=== PATIENT | female | born 1995 | race Caucasian/White ===

== ENCOUNTER → 2021-01-04 10:18 | Outpatient (CLI) | payer MEDICAID, SELFPAY ==
[2021-01-04 11:49] LABS: hCG Titer Quant., Serum < 1 mIU/mL (1-3)
== END ==
PROVIDERS: Visit Provider Obstetrics & Gynecology
DX: O03.9 Complete or unspecified spontaneous abortion without complication (principal)
CPT/HCPCS: 36415; 84702; 86900; 86901

== ENCOUNTER 2021-09-05 13:52 | Outpatient (CLI) | payer BC, SELFPAY ==
[2021-09-05 14:40] LABS: Hematocrit 38.5 % (37-47); Hemoglobin 13.3 g/dL (12.0-15.0); Mean Corp Hgb Conc 34.5 g/dL (32-36); Mean Corpuscular Hgb 30.4 pg (27.0-32.0); Mean Corpuscular Volume 88.1 fL (81-99); Mean Platelet Vol. 9.4 fl (6.2-12.0); Platelet Count 316 K/mm3 (150-450); RBC Distribution Width CV 12.2 % (11.6-14.6); RBC Distribution Width SD 39.3 fl (35.1-43.9); Red Blood Count 4.37 M/mm3 (4.2-5.4); White Blood Count 5.6 K/mm3 (4.4-11.0)
[2021-09-05 15:16] LABS: Estradiol 40.9 pg/mL; Follicle Stimulating Hormone 9.7 mIU/mL; Luteinizing Hormone 7.6 mIU/mL; T4 Free Direct 1.03 ng/dL (0.76-1.46); Thyroid Stim Hormone (TSH) 2.93 uIU/mL (0.358-3.74)
[2021-09-12 15:32] LABS: HPV Reflexed? NOT INDICATED
== END 2021-09-05 23:59 | disposition home or self-care (01) ==
LOC: WOBLAB 13:54
PROVIDERS: Visit Provider Obstetrics & Gynecology
DX: N93.9 Abnormal uterine and vaginal bleeding, unspecified (principal); Z12.4 Encounter for screening for malignant neoplasm of cervix
CPT/HCPCS: 36415; 82670; 83001; 83002; 84439; 84443; 85027; 88175; G0145

== ENCOUNTER → 2021-10-24 | Outpatient (CLI) | payer BC, SELFPAY ==
[2021-10-24 17:11] LABS: Absolute Lymphocyte Count 2.03 X10^3/uL (0.83-4.51); Absolute Neutrophil Count 3.4 X10^3/uL (2.0-7.7); Basophil# 0.02 X10^3/uL; Basophil% 0.3 % (0-1); Eosinophil# 0.25 X10^3/uL; Eosinophils% 4.2 % (0-5); Hemoglobin 12.4 g/dL (12.0-15.0); Lymphocyte # 2.03 X10^3/ul (0.83-4.51); Lymphocyte % 33.8 % (19-41); Mean Corp Hgb Conc 33.5 g/dL (32-36); Mean Corpuscular Hgb 30.4 pg (27.0-32.0); Mean Corpuscular Volume 90.7 fL (81-99); Mean Platelet Vol. 9.2 fl (6.2-12.0); Monocyte# 0.34 X10^3/uL; Monocyte% 5.7 % (0-10); NRBC Flagged by Analyzer 0 % (0-5); Neutrophil # 3.35 X10^3/uL (2.7-7.7); Neutrophil % 55.7 % (47-70); Platelet Count 222 K/mm3 (150-450); RBC Distribution Width CV 12.4 % (11.6-14.6); Red Blood Count 4.08 M/mm3 (4.2-5.4)
[2021-10-24 21:11] LABS: HIV - WCH Non-Reactive (Nonreactive); Hepatitis B Surface Antigen Non-Reactive (Nonreactive); Hepatitis C Antibody Non-Reactive (Nonreactive); Rubella IgG Reactive (Nonreactive); Syphilis Antibodies Non-reactive
[2021-10-26 21:07] LABS: Chlamydia By Nucleic Acid AMP Negative (Negative)
[2021-10-26 21:48] LABS: Gonococcus By Nucleic Acid AMP Negative (Negative)
== END | disposition home or self-care (01) ==
LOC: WOBLAB 16:53
PROVIDERS: Visit Provider Obstetrics & Gynecology
DX: Z34.81 Encounter for supervision of other normal pregnancy, first trimester (principal); Z11.3 Encounter for screening for infections with a predominantly sexual mode of transmission
CPT/HCPCS: 36415; 85025; 86703; 86762; 86780; 86803; 87077; 87086; 87088; 87340; 87491; 87591

== ENCOUNTER → 2022-03-16 | Outpatient (CLI) | payer BC, SELFPAY ==
[2022-03-16 11:00] LABS: Absolute Lymphocyte Count 0.69 X10^3/uL (0.83-4.51); Absolute Neutrophil Count 5.8 X10^3/uL (2.0-7.7); Basophil# 0.01 X10^3/uL; Basophil% 0.1 % (0-1); Eosinophil# 0.15 X10^3/uL; Eosinophils% 2.1 % (0-5); Hematocrit 32.7 % (37-47); Hemoglobin 11.1 g/dL (12.0-15.0); Lymphocyte # 0.69 X10^3/ul (0.83-4.51); Lymphocyte % 9.7 % (19-41); Mean Corp Hgb Conc 33.9 g/dL (32-36); Mean Corpuscular Hgb 31.9 pg (27.0-32.0); Mean Platelet Vol. 9.4 fl (6.2-12.0); Monocyte# 0.44 X10^3/uL; Monocyte% 6.2 % (0-10); NRBC Flagged by Analyzer 0 % (0-5); Neutrophil # 5.79 X10^3/uL (2.7-7.7); Neutrophil % 81.1 % (47-70); Platelet Count 233 K/mm3 (150-450); RBC Distribution Width CV 12.9 % (11.6-14.6); RBC Distribution Width SD 44.5 fl (35.1-43.9); Red Blood Count 3.48 M/mm3 (4.2-5.4); White Blood Count 7.1 K/mm3 (4.4-11.0)
[2022-03-16 11:07] LABS: Glucose Challenge Gest 1H 50g 165 mg/dL (70-140)
== END | disposition home or self-care (01) ==
LOC: WOBLAB 09:26
PROVIDERS: Visit Provider Obstetrics & Gynecology
DX: Z34.82 Encounter for supervision of other normal pregnancy, second trimester (principal)
CPT/HCPCS: 36415; 82950; 85025

== ENCOUNTER → 2022-03-23 | Outpatient (CLI) | payer BC, SELFPAY ==
[2022-03-23 09:35] LABS: Glucose GTT-Gestation. Fasting 85 mg/dL (<105)
[2022-03-23 10:38] LABS: Glucose GTT-Gestational 1 Hr 133 mg/dL (<190)
[2022-03-23 12:33] LABS: Glucose GTT-Gestational 2 Hr 165 mg/dL (<165)
[2022-03-23 13:22] LABS: Glucose GTT-Gestational 3 Hr 125 L (<145)
== END | disposition home or self-care (01) ==
LOC: WOBLAB 08:52
PROVIDERS: Visit Provider Obstetrics & Gynecology
DX: O24.912 Unspecified diabetes mellitus in pregnancy, second trimester (principal)
CPT/HCPCS: 36415; 82951; 82952

== ENCOUNTER → 2022-05-25 | Outpatient (CLI) | payer BC, SELFPAY | END | disposition home or self-care (01) | LOC: LABSPEC 11:36 | PROVIDERS: Visit Provider Obstetrics & Gynecology | DX: Z36.85 Encounter for antenatal screening for Streptococcus B (principal) | CPT/HCPCS: 87081 ==

== ENCOUNTER 2022-06-17 07:45 | Inpatient (IN) | payer BC, SELFPAY ==
[2022-06-17] VITALS (54 sets, daily range): BP systolic 91–137; BP diastolic 50–85; PULSE 58–112; RESP 18; TEMP 36.5–37.3; O2SAT 84–100; BMI 33.7
--- NOTE | 2022-06-17 07:35 | PCM.HP.BLA ---
History and Physical Date of Admission: 06/17/22 HPI: 27-year-old G3, P1 at 39/6 weeks, MAHAD 06/18/2022 by LMP consistent with first trimester ultrasound, admitted for labor. Reports contractions. Denies leaking of fluid, vaginal bleeding. Reports movement. Denies headache or vision changes, chest pain or shortness of breath, nausea or vomiting, diarrhea or constipation, fevers or chills. 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 section 2. [place] tooth extraction Medical history: Denies Allergies: No known drug allergies Social history: Denies tobacco, alcohol, drug use Medications: Aspirin 81 mg daily, vitamin Family history: Denies history of blood clots or bleeding disorders Review of system: Negative otherwise stated above Physical exam: Blood pressure 121/81, pulse 73, pulse ox 97% on room air General: No acute distress, uncomfortable with contractions HEENT: Normocephalic/atraumatic, PERRLA Cardiorespiratory: No increased effort Abdomen: Soft, nontender, gravid Extremities: Minimal edema Musculoskeletal: Strength 5-5 throughout extremities Neurologic: Cranial nerves II through XII grossly intact, no focal deficits Cervical exam: 2 cm per RN FHR: 135/mod wiliam/+accel/intermittent decels Filley: q5 Assessment/plan: 27-year-old G3, P1 at 39/6 weeks, MAHAD 06/18/2022 by LMP consistent with first trimester ultrasound, admitted for labor. complicated by: Prior section. ?Discussed trial of labor after section. Discussed risks and benefits. Lowest risk outcome would be successful vaginal after section, followed by repeat section, followed by section after failed trial of labor. Discussed less than 1% risk of uterine rupture. Discussed potential risks with uterine rupture including, but not limited to: Risk of , neurologic compromise, maternal hemorrhage, section, hysterectomy. Additionally discussed risks of section: Risk of bleeding to the point transfusion, infection, injury to surrounding tissue including bowel or bladder potentially requiring Morales catheter use for a prolonged period of time, VTE, ICU admission. Discussed that there had been variable decelerations on heart tracing, therefore she will need to stay to deliver. Discussed potential need for Pitocin. At this time patient and her are deciding between trial of labor versus repeat section. All questions answered. Discussed current plan with bedside RN. GBS negative on 05/25
[2022-06-17] MEDS: Lactated Ringers 1,000 ML 50 ML IV (08:52)
[2022-06-17] MEDS: LACTATED RINGERS 500 ML 999 ML IV (08:52)
[2022-06-17 09:01] LABS: Absolute Lymphocyte Count 1.48 X10^3/uL (0.83-4.51); Absolute Neutrophil Count 6.8 X10^3/uL (2.0-7.7); Basophil# 0.03 X10^3/uL; Basophil% 0.3 % (0-1); Eosinophil# 0.11 X10^3/uL; Eosinophils% 1.2 % (0-5); Hematocrit 37.5 % (37-47); Hemoglobin 12.9 g/dL (12.0-15.0); Lymphocyte # 1.48 X10^3/ul (0.83-4.51); Lymphocyte % 16.7 % (19-41); Mean Corp Hgb Conc 34.4 g/dL (32-36); Mean Corpuscular Hgb 31.3 pg (27.0-32.0); Mean Platelet Vol. 10.2 fl (6.2-12.0); Monocyte# 0.34 X10^3/uL; Monocyte% 3.8 % (0-10); NRBC Flagged by Analyzer 0 % (0-5); Neutrophil # 6.83 X10^3/uL (2.7-7.7); Neutrophil % 77.2 % (47-70); Platelet Count 231 K/mm3 (150-450); RBC Distribution Width CV 13.2 % (11.6-14.6); RBC Distribution Width SD 43.8 fl (35.1-43.9); Red Blood Count 4.12 M/mm3 (4.2-5.4); White Blood Count 8.9 K/mm3 (4.4-11.0)
[2022-06-17] MEDS: fentaNYL-bupivacaine (epidural) 100 ML BAG EPIDURAL ×2 (09:36→14:43)
[2022-06-17] MEDS: Ondansetron 4 MG/2 ML Vial IV (10:22)
[2022-06-17] MEDS: 0.9% Saline Lock 10 ML Syringe IV ×2 (10:23→19:31)
[2022-06-17] MEDS: Lactated Ringers 1,000 ML 200 ML IV (11:49)
[2022-06-17] MEDS: Oxytocin 15 Units/NS 250ml 15 UNITS/250 ML IV.SOLN 2 UNITS IV (14:24)
--- NOTE | 2022-06-17 15:49 | EX.PCM.OBRPT ---
Vaginal Delivery Operative Information Date of Procedure: 06/17/22 Pre-Operative Diagnosis: Mccord intrauterine , trial of labor after section Post-Operative Diagnosis: Mccord intrauterine , vaginal after section, terminal meconium Type of Anesthesia: Epidural Estimated Blood Loss: 300 cc Findings Description of Procedure: Spontaneous vaginal delivery of viable male. Nuchal cord x1, loose, delivered through. Terminal meconium. Baby to mom, cord clamped and cut. Second-degree laceration repaired in usual fashion, hemostatic. Spontaneous delivery of placenta. Rectal exam within normal limits. Successful vaginal delivery after section Will leave Morales catheter in place due to labial edema after approximately 4 hours of pushing. Infant A Gender: Male (1 minute): 8 (5 minute): 9 Complication Complications: None
[2022-06-17] MEDS: Acetaminophen 500 MG Tablet 1000 MG PO (16:19)
[2022-06-17] MEDS: Oxytocin 15 Units/NS 250ml 15 UNITS/250 ML IV.SOLN 83 UNITS IV (16:33)
[2022-06-17] MEDS: Ibuprofen 600 MG Tablet PO (19:23)
[2022-06-18] MEDS: Acetaminophen 500 MG Tablet PO ×4 (00:04→22:32)
[2022-06-18 00:08] VITALS: BP 120/61; PULSE 71; RESP 16; TEMP 36.6; O2SAT 96
[2022-06-18 04:52] VITALS: BP 122/65; PULSE 77; RESP 16; TEMP 37; O2SAT 98
[2022-06-18] MEDS: Ibuprofen 600 MG Tablet PO ×3 (04:54→17:58)
--- NOTE | 2022-06-18 07:10 | PCM.PN.OB ---
Subjective Subjective No overnight complaints Objective Data Objective Data Vital Signs: Vital Signs Temp Pulse Resp BP Pulse Ox O2 Del Method 98.6 F 77 16 122/65 H 98 Room Air 06/18/22 04:52 06/18/22 04:52 06/18/22 04:52 06/18/22 04:52 06/18/22 04:52 06/18/22 04:52 Oxygen Delivery Method Room Air Weight: 203 lb 2 oz Body Mass Index (BMI) 33.7 Intake & Output: Intake and Output for Last 24 Hours 06/16/22 06/17/22 06/18/22 23:59 23:59 23:59 Intake Total 2716.67 / 2716.67 Output Total 900 / 900 650 / 650 Balance 1816.67 / 1816.67 -650 / -650 Lab / Micro Data Result Diagrams: 06/17/22 08:50 Labs: Laboratory Results - last 24 hr 06/17/22 08:50: WBC 8.9, RBC 4.12 L, Hgb 12.9, Hct 37.5, MCV 91.0, MCH 31.3, MCHC 34.4, RDW Std Deviation 43.8, RDW Coeff of Bubba 13.2, Plt Count 231, MPV 10.2, Immature Gran % (Auto) 0.800, Neut % (Auto) 77.2 H, Lymph % (Auto) 16.7 L, [place] % (Auto) 3.8, Eos % (Auto) 1.2, Baso % (Auto) 0.3, Absolute Neuts (auto) 6.8, Absolute Lymphs (auto) 1.48, Nucleated RBC % 0 06/17/22 08:50: Blood Type A POSITIVE, Antibody Screen NEGATIVE Physical Exam Const alert, oriented x3, no apparent distress, average body habitus, healthy appearing and well nourished HEENT normocephalic and moist oral mucous membranes Eyes PERRL Neck full ROM Resp normal respiratory effort, no retractions and no use of accessory muscles GI GI Narrative: Soft, nontender, uterus firm and below umbilicus Extremity normal to inspection, full ROM and no clubbing, cyanosis or edema Neuro moves all extremities and no focal motor deficits Psych mental status grossly normal, affect normal, speech normal and activity/motor behavior normal Assessment & Plan (1) Vaginal delivery: PLAN: day 1 status post . Breast-feeding. Pain well controlled. Likely home tomorrow
[2022-06-18 08:45] VITALS: BP 97/57; RESP 16; TEMP 36.8; O2SAT 96
[2022-06-18 11:58] VITALS: BP 118/69; PULSE 71; RESP 16; TEMP 36.6
[2022-06-18 16:00] VITALS: BP 100/55; PULSE 71; RESP 14; TEMP 36.9
[2022-06-18 20:52] VITALS: BP 109/61; PULSE 72; RESP 18; TEMP 36.6
[2022-06-19] MEDS: Ibuprofen 600 MG Tablet PO (00:14)
[2022-06-19] MEDS: oxyCODONE 5 MG Tablet PO ×4 (00:59→15:16)
[2022-06-19 01:41] VITALS: BP 126/75; PULSE 79; RESP 18; TEMP 36.4
--- NOTE | 2022-06-19 01:53 | PN.OBGYN_ITS ---
Subjective Subjective Patient reporting right-sided pain that started this evening around 10 PM. Most improved using Motrin. Worsened when being moved to lie flat. States that pain is sharp and crampy. Does have some mild similar discomfort on the left side. Denies nausea or vomiting. Reports some flatus. States that last bowel m ovement was Saturday or Saturday. Denied constipation issues recently. Reports minimal lochia. Objective Data Objective Data Vital Signs: Vital Signs Temp Pulse Resp BP Pulse Ox O2 Del Method 97.5 F L 79 18 126/75 H 96 Room Air 06/19/22 01:41 06/19/22 01:41 06/19/22 01:41 06/19/22 01:41 06/18/22 08:45 06/19/22 01:41 Oxygen Delivery Method Room Air Weight: 92.136 kg Body Mass Index (BMI) 33.7 Intake & Output: Intake and Output for Last 24 Hours 06/17/22 06/18/22 06/19/22 23:59 23:59 23:59 Intake Total 2716.67 / 2716.67 Output Total 900 / 900 650 / 650 Balance 1816.67 / 1816.67 -650 / -650 Lab / Micro Data Attestation: I reviewed the patient's lab results. Result Diagrams: 06/17/22 08:50 Physical Exam Const alert HEENT normocephalic Resp normal respiratory effort Cardio regular rate GI soft to palpation, non-distended and no masses GI Narrative: Mildly tender to palpation. No rebound or guarding. Uterus firm and 2 cm below umbilicus. Extremity normal to inspection Neuro moves all extremities Assessment & Plan (1) Vaginal delivery: PLAN: day 2 status post vaginal delivery after section. ?Now with abdominal pain. Greatest improvement noted after ibuprofen. Not improving after oxycodone. Bedside ultrasound was completed noting uterus with thin endometrial stripe. Bladder slightly filled. Lochia is minimal. Differential diagnosis: Musculoskeletal strain due to labor and delivery versus appendicitis. Patient is currently afebrile, vital signs are stable. She is not having any nausea or vomiting. She does have some tenderness on the left side that is similar but less intense. Discussed trying one-time dose of Flexer il versus CT at this time. Patient elects to trial Flexeril. If pain is not improved we will do CT abdomen pelvis. ?Breast-feeding (2) Abdominal pain:
[2022-06-19 02:18] LABS: Absolute Lymphocyte Count 0.94 X10^3/uL (0.83-4.51); Absolute Neutrophil Count 11.5 X10^3/uL (2.0-7.7); Basophil# 0.02 X10^3/uL; Basophil% 0.1 % (0-1); Eosinophil# 0.19 X10^3/uL; Eosinophils% 1.4 % (0-5); Hematocrit 34.2 % (37-47); Hemoglobin 11.4 g/dL (12.0-15.0); Lymphocyte # 0.94 X10^3/ul (0.83-4.51); Mean Corp Hgb Conc 33.3 g/dL (32-36); Mean Corpuscular Hgb 31.4 pg (27.0-32.0); Mean Corpuscular Volume 94.2 fL (81-99); Mean Platelet Vol. 9.9 fl (6.2-12.0); Monocyte# 0.68 X10^3/uL; Monocyte% 5.1 % (0-10); NRBC Flagged by Analyzer 0 % (0-5); Neutrophil % 85.6 % (47-70); Platelet Count 198 K/mm3 (150-450); RBC Distribution Width CV 13.8 % (11.6-14.6); RBC Distribution Width SD 47.7 fl (35.1-43.9); Red Blood Count 3.63 M/mm3 (4.2-5.4); White Blood Count 13.4 K/mm3 (4.4-11.0)
[2022-06-19] MEDS: Polyethylene Glycol 3350 17 GM PACKET PO ×3 (02:35→21:50)
[2022-06-19] MEDS: cycloBENZAPRine HCl 10 MG Tablet PO (02:35)
[2022-06-19 02:42] LABS: Anion Gap 7 (5-15); BUN 7 mg/dL (7-18); BUN/Creat Ratio 13.9 RATIO (10-20); Calcium,Total 8.5 mg/dL (8.5-10.1); Chloride 114 mmol/L (98-107); EST Glomerular Filtration Rate 154 mL/min (>60); Est Glom Filt Rate - Afr Amer 186 mL/min (>60); Estimated Creatinine Clearance 149.39 ml/min; Glucose 129 mg/dL (74-106); Potassium 3.6 mmol/L (3.5-5.1); Sodium Level 143 mmol/L (136-145)
[2022-06-19] MEDS: Acetaminophen 500 MG Tablet 1000 MG PO ×2 (04:41→12:51)
--- NOTE | 2022-06-19 05:40 | CT_ITS ---
INDICATION: day 2 with right-sided abdominal pain, concern for appendicitis. EXAMINATION: CT Abdomen And Pelvis W/ Contrast Injection TECHNIQUE: Helically acquired images were obtained of the abdomen and pelvis following IV contrast. 2-D reconstructions reviewed. A radiation dose optimization technique was used for this scan. IV Contrast dosage and agent: 100 mL Isovue-370 Oral contrast: None. COMPARISON: None. FINDINGS: LOWER CHEST: Mild bibasilar atelectatic changes. Heart size within normal limits. LIVER: Homogeneous. No concerning lesion. GALLBLADDER AND BILIARY TREE: No calcified gallstones identified. No gallbladder wall edema demonstrated. No significant biliary ductal dilation. PANCREAS: No discrete mass or peripancreatic edema. SPLEEN: Normal size without focal cystic or solid mass. ADRENAL GLANDS: Unremarkable. KIDNEYS AND URETERS: Normal renal size and position. No hydronephrosis. No concerning lesion. PERITONEUM: Small amount of free pelvic fluid. No free air. BOWEL: Normal appendix within mid abdomen just right of midline and above enlarged uterus. Prominent colonic fecal load. No bowel obstruction or significant bowel thickening. LYMPH NODES: No enlarged mesenteric or retroperitoneal lymph nodes. VESSELS: No acute findings. No abdominal aortic aneurysm. URINARY BLADDER: Small amount of gas within bladder lumen, likely secondary to recent instrumentation/catheterization. REPRODUCTIVE ORGANS: Enlarged uterus. Low-attenuation fluid collection along right anterior lower uterine segment measures approximately 4.5 x 3 cm. ABDOMINAL WALL: Mild soft tissue swelling lower abdominal wall. BONES: Intact with no suspicious osseous lesion. CT/Abdomen/Pelvis W IV Cont ONLY IMPRESSION: 1. Fluid collection along lower uterine segment likely small hematoma but correlate clinically for signs of infection and developing abscess. 2. Enlarged uterus with small amount of free pelvic fluid. 3. Probable constipation. Electronically Signed: Tl London MD at 6:57 EST ,
[2022-06-19] MEDS: Ketorolac 15 MG/ML Vial IV ×3 (05:55→18:03)
[2022-06-19 08:15] VITALS: BP 108/48; PULSE 77; RESP 16; TEMP 36.2; O2SAT 96
[2022-06-19] MEDS: Bisacodyl 10 MG Suppository RC (10:54)
[2022-06-19 11:21] VITALS: BP 123/74; PULSE 83; RESP 14; TEMP 37.2; O2SAT 98
--- NOTE | 2022-06-19 11:47 | NURSING ---
0949 dr cobb into examine pt d/t a increase in her pain level
[2022-06-19] MEDS: Senna/Docusate Sodium 1 Tablet PO (13:01)
[2022-06-19 13:17] LABS: Absolute Lymphocyte Count 0.99 X10^3/uL (0.83-4.51); Absolute Neutrophil Count 13.5 X10^3/uL (2.0-7.7); Basophil# 0.03 X10^3/uL; Basophil% 0.2 % (0-1); Eosinophil# 0.24 X10^3/uL; Eosinophils% 1.5 % (0-5); Hematocrit 35.7 % (37-47); Hemoglobin 11.9 g/dL (12.0-15.0); Lymphocyte # 0.99 X10^3/ul (0.83-4.51); Lymphocyte % 6.3 % (19-41); Mean Corp Hgb Conc 33.3 g/dL (32-36); Mean Corpuscular Hgb 31.5 pg (27.0-32.0); Mean Corpuscular Volume 94.4 fL (81-99); Mean Platelet Vol. 9.6 fl (6.2-12.0); Monocyte# 0.84 X10^3/uL; Monocyte% 5.4 % (0-10); NRBC Flagged by Analyzer 0 % (0-5); Neutrophil # 13.52 X10^3/uL (2.7-7.7); Neutrophil % 86.1 % (47-70); Platelet Count 202 K/mm3 (150-450); RBC Distribution Width SD 48.2 fl (35.1-43.9); Red Blood Count 3.78 M/mm3 (4.2-5.4); White Blood Count 15.7 K/mm3 (4.4-11.0)
[2022-06-19 16:36] VITALS: BP 107/63; PULSE 75; RESP 14; TEMP 37.3; O2SAT 96
[2022-06-19] MEDS: 0.9% Saline Lock 10 ML Syringe IV ×2 (18:03→22:20)
[2022-06-19 20:33] VITALS: BP 117/79; PULSE 92; RESP 15; TEMP 37.4; O2SAT 97
[2022-06-20] MEDS: 0.9% Saline Lock 10 ML Syringe IV
[2022-06-20] MEDS: Ketorolac 15 MG/ML Vial IV
[2022-06-20 02:50] VITALS: BP 115/71; PULSE 75; RESP 15; TEMP 36.3; O2SAT 97
[2022-06-20] MEDS: Acetaminophen 500 MG Tablet 1000 MG PO ×2 (02:50→10:42)
[2022-06-20 04:56] LABS: Absolute Lymphocyte Count 1.83 X10^3/uL (0.83-4.51); Absolute Neutrophil Count 11.2 X10^3/uL (2.0-7.7); Basophil# 0.03 X10^3/uL; Basophil% 0.2 % (0-1); Eosinophil# 0.42 X10^3/uL; Eosinophils% 2.9 % (0-5); Hematocrit 35.3 % (37-47); Hemoglobin 11.7 g/dL (12.0-15.0); Lymphocyte # 1.83 X10^3/ul (0.83-4.51); Lymphocyte % 12.7 % (19-41); Mean Corp Hgb Conc 33.1 g/dL (32-36); Mean Corpuscular Volume 93.4 fL (81-99); Mean Platelet Vol. 9.6 fl (6.2-12.0); Monocyte# 0.78 X10^3/uL; Monocyte% 5.4 % (0-10); NRBC Flagged by Analyzer 0 % (0-5); Neutrophil # 11.24 X10^3/uL (2.7-7.7); Platelet Count 227 K/mm3 (150-450); RBC Distribution Width CV 13.8 % (11.6-14.6); RBC Distribution Width SD 47.2 fl (35.1-43.9); Red Blood Count 3.78 M/mm3 (4.2-5.4); White Blood Count 14.4 K/mm3 (4.4-11.0)
--- NOTE | 2022-06-20 05:27 | NURSING ---
Patient reports to RN this shift that toradol and tylenol have helped her pain, and that the pain she is having is not the same sharp pain as last night. Patient wishes to do motrin instead of 0600 toradol dose. Patient also reports have two small bowel movements yesterday during the day and has felt a little better since then.
[2022-06-20] MEDS: Ibuprofen 600 MG Tablet PO (06:26)
--- NOTE | 2022-06-20 06:38 | PN.OBGYN_ITS ---
Subjective Subjective Patient overall with no overnight complaints. Patient feels pain is much improved and well controlled. Ambulating, now with regular bowel movements. Voiding spontaneously and tolerating regular diet. Objective Data Objective Data Vital Signs: Vital Signs Temp Pulse Resp BP Pulse Ox O2 Del Method 97.3 F L 75 15 115/71 97 Room Air 06/20/22 02:50 06/20/22 02:50 06/20/22 02:50 06/20/22 02:50 06/20/22 02:50 06/20/22 02:50 Oxygen Delivery Method Room Air Weight: 203 lb 2 oz Body Mass Index (BMI) 33.7 Intake & Output: Intake and Output for Last 24 Hours 06/18/22 06/19/22 06/20/22 23:59 23:59 23:59 Intake Total 200 / 200 Output Total 650 / 650 Balance -650 / -650 200 / 200 Lab / Micro Data Result Diagrams: 06/20/22 04:43 06/19/22 02:10 Labs: Laboratory Results - last 24 hr 06/19/22 13:00: WBC 15.7 H, RBC 3.78 L, Hgb 11.9 L, Hct 35.7 L, MCV 94.4, MCH 31.5, MCHC 33.3, RDW Std Deviation 48.2 H, RDW Coeff of Bubba 14.0, Plt Count 202, MPV 9.6, Immature Gran % (Auto) 0.500, Neut % (Auto) 86.1 H, Lymph % (Auto) 6.3 L, [place] % (Auto) 5.4, Eos % (Auto) 1.5, Baso % (Auto) 0.2, Absolute Neuts (auto) 13.5 H, Absolute Lymphs (auto) 0.99, Nucleated RBC % 0 06/20/22 04:43: WBC 14.4 H, RBC 3.78 L, Hgb 11.7 L, Hct 35.3 L, MCV 93.4, MCH 31.0, MCHC 33.1, RDW Std Deviation 47.2 H, RDW Coeff of Bubba 13.8, Plt Count 227, MPV 9.6, Immature Gran % (Auto) 0.800, Neut % (Auto) 78.0 H, Lymph % (Auto) 12.7 L, [place] % (Auto) 5.4, Eos % (Auto) 2.9, Baso % (Auto) 0.2, Absolute Neuts (auto) 11.2 H, Absolute Lymphs (auto) 1.83, Nucleated RBC % 0 Radiography Diagnostic Testing: Radiology Impression Abdomen/Pelvis CT 06/19/22 05:40 IMPRESSION: 1. Fluid collection along lower uterine segment likely small hematoma but correlate clinically for signs of infection and developing abscess. 2. Enlarged uterus with small amount of free pelvic fluid. 3. Probable constipation. Electronically Signed: Tl London MD at 6:57 EST , Physical Exam Const alert, oriented x3, no apparent distress, average body habitus, healthy appearing and well nourished HEENT normocephalic and moist oral mucous membranes Eyes PERRL Neck full ROM Resp normal respiratory effort, no retractions and no use of accessory muscles GI GI Narrative: Soft, nontender, uterus firm and below umbilicus. No rebound tenderness or guarding Extremity normal to inspection and full ROM Neuro moves all extremities and no focal motor deficits Psych mental status grossly normal, affect normal, speech normal and activity/motor behavior normal Assessment & Plan (1) Vaginal delivery: PLAN: day 3 status post . Breast-feeding. Patient found to have 4 cm uterine hematoma on CT with abdominal pain. Now status post bowel movement. Ambulating with ease. Status post Cefotan x24 hours. To DC Toradol and switch to ibuprofen, if well-tolerated pain okay to discharge home today with stable hemoglobin and nonacute abdomen.
--- NOTE | 2022-06-20 06:41 | PCM.DC.BLA ---
Discharge Summary Date of Admission: 06/17/22 Date of Discharge: 06/20/22 Summary: Patient arrived 06/17/2022 in labor desired to TOLAC. Subsequently delivered vaginally on 06/17/2022. On day 1 patient noted to have abdominal pain that was unresolved with pain medication. CT scan of the abdomen pelvis was performed and 4 x 3 cm anterior uterine hematoma was noted. Vitals and labs were otherwise stable. Patient treated with antibiotics cefotetan for 24 hours along with Toradol and oxycodone. Patient also noted to have constipation on CT. After bowel movement and pain medications patient felt much improved. Stopped antibiotic and stopped IV pain medications, patient able to ambulate and labs stable. Discharged home on 06/20/2022 Meaningful Use Info Meaningful Use Diagnoses (Choose all that apply): None applicable Discharge Plan Admission Admit Date/Time: 06/17/22 07:45 Primary Reason for Your Visit: Labor Attending Provider: Kat Brasher Instructions Additional Instructions / Restrictions: Regular diet. Okay to shower. No tub baths for 2 weeks. No intercourse for 4 to 6 weeks. No lifting over 15 pounds for 2 to 3 weeks. Call if fevers, chills, chest pain, shortness of breath. Follow-up 1 to 2 weeks Discharge Orders/Prescriptions Prescriptions: New oxycodone 5 mg Tablet 5 mg PO Q6H PRN PRN (Reason: Pain Score 7-10) 4 Days Qty: 16 0RF Continued ykqbvjju-yjk-Yd-FA 1 mg Tablet 1 tab PO DAILY aspirin 81 mg Tablet 81 mg PO DAILY Disposition Disposition (needs filled in before D/C Order can be placed): Home, Self Care
[2022-06-20 08:55] VITALS: BP 109/68; PULSE 75; RESP 16; TEMP 36.2
[2022-06-20] MEDS: Polyethylene Glycol 3350 17 GM PACKET PO (10:42)
== END 2022-06-20 11:15 | disposition home or self-care (01) | DRG 806 ==
LOC: WP 07:48 → WPOUT 06-18 12:14
PROVIDERS: Admitting Provider Student in an Organized Health Care Education/Training Program; Visit Provider Student in an Organized Health Care Education/Training Program
DX: O70.1 Second degree perineal laceration during delivery (principal); Z37.0 Single live birth; O71.7 Obstetric hematoma of pelvis; O34.211 Maternal care for low transverse scar from previous cesarean delivery; O69.81X0 Labor and delivery complicated by cord around neck, without compression, not applicable or unspecified; Z3A.39 39 weeks gestation of pregnancy
CPT/HCPCS: 59025; 59050; 74177; 80048; 85025; 86850; 86900; 86901; 99221; J7120; Q9967; A4216; G0378; J2405

== ENCOUNTER → 2022-12-07 | Outpatient (CLI) | payer BC, SELFPAY | END | disposition home or self-care (01) | LOC: LABSPEC 09:37 | PROVIDERS: Visit Provider Obstetrics & Gynecology | DX: N39.0 Urinary tract infection, site not specified (principal) | CPT/HCPCS: 87086; 87088 ==

== ENCOUNTER 2023-11-03 14:05 | Outpatient (CLI) | payer BC, SELFPAY ==
[2023-11-03 15:00] VITALS: BMI 31.7
[2023-11-03 15:14] VITALS: BP 123/71; PULSE 84; RESP 16; TEMP 36.6
[2023-11-03 15:22] LABS: Mucous, Urine 0 SEEN /hpf (<or=2+)
[2023-11-03 15:34] LABS: Color, Urine Yellow (Yellow); Glucose, Dipstick Normal (Normal); Leukocyte Esterase-Dipstick 25 /ul (Negative); Nitrite-Dipstick Negative (Negative); Occult Blood-Urine Negative /ul (Negative); Protein-Dipstick Negative (Negative); Urine Bilirubin Dipstick Negative (Negative); Urine Clarity Sl. Cloudy (Clear); Urine Urobilinogen Normal (Normal); Urine pH 6.5 (5.0 - 8.0)
[2023-11-03 15:39] LABS: Ketone-Dipstick 150 mg/dl (Negative)
[2023-11-03 15:42] LABS: Amorphous Sediment 1+ URATE; Bacteria 2+ /hpf (None Seen); Red Blood Cells-Urine 0-5 SEEN /hpf (0-5); Squamous Epithelial Cells - UA 0-5 SEEN /hpf (5-10); White Blood Cells 0-5 SEEN /hpf (0-5)
[2023-11-03] MEDS: Nitrofurantoin Macrocrystals 100 MG Capsule PO (15:55)
--- NOTE | 2023-11-04 07:12 | OB.TRI.NOTE ---
HPI - General General Date of Admission: 11/03/23 Date of Service: 11/03/23 Chief Complaint: Pelvic pain HPI Narrative JEREL NASH, is a 28 F who presents pelvic pain and lower back pain. Large ketones in her urine2+ bacteria and Leuk. Reactive NST. Macrobid sent to pharmacy Maternal Data Information Final MAHAD: 12/25/23 Gestational age: 32+5 PFSH PFSH Medical History (Updated 11/04/23 @ 07:[address] Samantha Holliday MD) Gestational HTN Home Medications ?Medication ?Instructions ?Recorded ?Last Taken ?Type aspirin 81 mg tablet 81 mg PO DAILY 06/17/22 11/02/23 History tglppzve-[id number]-Di-FA 1 mg 1 tab PO DAILY 06/17/22 11/02/23 History tablet nitrofurantoin 100 mg PO Q12H 7 days #14 caps 11/03/23 Unknown Rx monohydrate/macrocrystals 100 mg capsule (Macrobid) omeprazole magnesium 20 mg 20 mg PO DAILY 11/03/23 11/02/23 History tablet,delayed release (Prilosec OTC) Allergy/AdvReac Type Severity Reaction Status Date / Time No Known Allergies Allergy Verified 06/17/22 09:08 Surgical History (Updated 06/17/22 @ 08:47 by Alice Joel) History of surgery Previous section Social History Smoking Status: Never smoker History Elective abortions Hx Para 1 Spontaneous abortions Hx # Term Pregnancies Ectopic pregnancies Hx # Pregnancies Multiple births # of living children NST FHR Rate Baby A Baseline: 150 Variability:: Moderate Accelerations:: 15 x 15 Decelerations:: None NST Reactive:: Yes FHR Category:: Category I Uterine Activity:: Irritable at first and then resolved with hydration Assessment & Plan (1) UTI (urinary tract infection) during : QUALIFIERS: Trimester: third trimester Qualified Code(s): O23.43 - Unspecified infection of urinary tract in , third trimester PLAN: Culture sent, Macrobid to home pharmacy (2) 32 weeks gestation of :
== END 2023-11-03 16:08 | disposition home or self-care (01) ==
LOC: WPOUT 14:20 → WP 14:21
PROVIDERS: Visit Provider Obstetrics & Gynecology
DX: O23.43 Unspecified infection of urinary tract in pregnancy, third trimester (principal); Z79.82 Long term (current) use of aspirin; Z79.899 Other long term (current) drug therapy; Z3A.32 32 weeks gestation of pregnancy
CPT/HCPCS: 59025; 59050; 81001; 87086; 99221; G0378

== ENCOUNTER 2023-12-25 09:43 | Inpatient (IN) | payer BC, SELFPAY ==
[2023-12-25] VITALS (21 sets, daily range): BP systolic 98–129; BP diastolic 46–89; PULSE 51–90; RESP 14–17; TEMP 36.1–36.9; O2SAT 98–100; BMI 33.4
[2023-12-25] MEDS: Lactated Ringers 1,000 ML 999 ML IV (10:15)
[2023-12-25] MEDS: Acetaminophen 500 MG Tablet 1000 MG PO ×3 (10:23→23:15)
[2023-12-25 10:25] LABS: Absolute Lymphocyte Count 1.64 X10^3/uL (0.83-4.51); Absolute Neutrophil Count 4.8 X10^3/uL (2.0-7.7); Basophil# 0.02 X10^3/uL; Basophil% 0.3 % (0-1); Eosinophils% 2.8 % (0-5); Hematocrit 36.9 % (37-47); Hemoglobin 12.5 g/dL (12.0-15.0); Lymphocyte # 1.64 X10^3/ul (0.83-4.51); Lymphocyte % 22.9 % (19-41); Mean Corp Hgb Conc 33.9 g/dL (32-36); Mean Corpuscular Hgb 30.6 pg (27.0-32.0); Mean Corpuscular Volume 90.2 fL (81-99); Mean Platelet Vol. 10.1 fl (6.2-12.0); Monocyte# 0.39 X10^3/uL; Monocyte% 5.5 % (0-10); NRBC Flagged by Analyzer 0 % (0-5); Neutrophil # 4.83 X10^3/uL (2.7-7.7); Neutrophil % 67.5 % (47-70); Platelet Count 219 K/mm3 (150-450); RBC Distribution Width CV 13.2 % (11.6-14.6); RBC Distribution Width SD 43.6 fl (35.1-43.9); Red Blood Count 4.09 M/mm3 (4.2-5.4); White Blood Count 7.2 K/mm3 (4.4-11.0)
[2023-12-25 11:00] LABS: Syphilis Antibodies Non-reactive
[2023-12-25] MEDS: Lactated Ringers 1,000 ML 150 ML IV (11:14)
[2023-12-25] MEDS: Sodium Citrate/Citric Acid 30 ML UDC PO (11:32)
--- NOTE | 2023-12-25 12:00 | HP.PCM_ITS ---
History and Physical Date of Admission: 12/25/23 HPI: The patient is a 28 year old female presenting for pre-operative visit. She is scheduled for , for previous c/s and LGA fetus on 12/25/23. Procedure discussed along with risks, benefits and complications. Other alternatives discussed for management. PAST MEDICAL HISTORY PAST MEDICAL HISTORY Diagnosis Date ? NEGATIVE MEDICAL HISTORY ? Pap smear for cervical cancer screening 01/2023 normal PAST SURGICAL HISTORY PAST SURGICAL HISTORY Procedure Laterality Date ? DELIVERY ONLY 07/10/2019 ? PAST SURGICAL HISTORY OF extraction of wisdom teeth CURRENT MEDICATIONS Current Outpatient Medications Medication Sig Dispense Refill ? omeprazole (PRILOSEC) 10 mg capsule Take 10 mg by mouth once daily. ? BABY ASPIRIN ORAL Take 81 mg by mouth once daily. ? vit calc,iron,folic ( [id number]-[id number]-FA ORAL) Take by mouth. No current facility-administered medications for this visit. ALLERGIES: Patient has no known allergies. PERSONAL HISTORY: SOCIAL HISTORY Social History Tobacco Use ? Smoking status: Never Passive exposure: Never ? Smokeless tobacco: Never Vaping Use ? Vaping Use: Never used Substance Use Topics ? Alcohol use: Yes Comment: occasionally ? Drug use: Never FAMILY HISTORY: FAMILY HISTORY FAMILY HISTORY Problem Relation Age of Onset ? No Known Problems Mother ? Hypertension Father ? other (elevated cholesterol) Father ? No Known Problems Brother ? No Known Problems Brother REVIEW OF SYMPTOMS: GENERAL: denies fevers or chills ENDOCRINOLOGY: has not been on steroids Cardiology : denies palpitations or chest pain Respiratory: denies SOB or cough Hematology: denies history of prolonged bleeding or easy bruising or VTE Allergy: Denies history of personal or family history of allergy to anesthesia PHYSICAL EXAMINATION: VITALS: Blood pressure 112/74, weight 90.5 kg (199 lb 9.6 oz), last menstrual period 03/20/2023. GENERAL: The patient is well nourished, well hydrated in no acute distress. , The patient is oriented to time, place, and person. NECK: Supple. No lynphadenopathy, normal thyroid, no thyromegaly. LUNGS: Clear to auscultation bilaterally. no wheezes, rhonchi or rales HEART: Regular rate and rhythm, Normal heart sounds, and No murmurs or gallops GENITALIA: Normal external genitalia, Urethral meatus normal, Bladder nontender, normal vagina and normal vaginal tone, normal cervix, normal uterus, size and consistency, normal adnexa without masses or tenderness, and perineum WNL IMPRESSION: previous c/s, LGA fetus PLAN: The risks/benefits/alternatives and personal involved for the planned c- section were reviewed with the patient. Her questions were answered to her satisfaction and she desires to proceed. Consent was signed. I reviewed with her postop instructions and expectations. I have reviewed and updated past medical and surgical history, medications and allergies
[2023-12-25] MEDS: Cefazolin 2 GM in 0.9% Normal Saline (100mL Bag) 100 ML IV (12:15)
--- NOTE | 2023-12-25 12:22 | OP.PCM_ITS ---
Assessment & Plan (1) 40 weeks gestation of : (2) Previous delivery affecting : (3) High risk multigravida in third trimester: Maternal Data Information Final MAHAD: 12/25/23 Gestational age: 40 0/7 Details Operative Information Date of Procedure: 12/25/23 Pre-Operative Diagnosis: previous c/s, 40 weeks gestation, LGA fetus by US Post-Operative Diagnosis: SAME Indications for : Repeat Elective Classification: Scheduled Procedure Type: low transverse non cdl driver #1: Alberta Reno Type of Anesthesia: Spinal Anesthesiologist: Jostin Bird Special Medications: duramorph Antibiotic Given: Ancef 2 grams IV x1 Drain: Morales to straight drain Estimated Blood Loss: 700 Fluids Replaced: 900 Procedure Start Time: 12:33 Procedure Stop Time: 13:08 Time of Delivery: 12:36 Findings Description of Procedure: The patient was taken to the operating room. She was prepped and draped in the dorsal supine position with a leftward tilt. A Pfannenstiel skin incision was made approximately 2 cm above the symphysis pubis and carried through to underlying layer fascia with the scalpel. The fascia was incised incised in the midline and extended laterally with the Car scissors. The fascia was dissected off the rectus muscles with blunt and sharp dissection. The rectus muscles were in the midline and the peritoneum was entered bluntly. The peritoneal incision was stretched and the bladder blade was placed. The uterine incision was made in a low transverse fashion with the scalpel and extended superiorly and inferiorly with blunt dissection. The amniotic membranes were ruptured bluntly and clear amniotic fluid returned. The 's head was brought to the incision in the flexed position and delivered without difficulty. The remainder of the was delivered with gentle traction and fundal pressure in the standard fashion. The mouth and nares were bulb suction ed. The cord was clamped and cut as the infant was stimulated. Cord clamping was delayed. The infant was handed off to the waiting nursing staff. The placenta was delivered with fundal massage and gentle traction in the standard fashion. The uterus was exteriorized and cleared of all clots and debris. The cervix was dilated with a ring forcep. The uterine incision was closed with #1 Vicryl in a running locked fashion. A second layer of the same suture was used in an imbricating fashion. The incision was examined and was found to be hemostatic. The uterus was placed back into the peritoneal cavity and hemostasis was again confirmed. The rectus muscles were examined and any bleeding was Bovie cauterized. The parietal peritoneum and rectus muscles were closed en bloc with an 0 Vicryl running suture. The rectus fascia was examined and any bleeding was Bovie cauterized and the rectus fascia was closed with #1 PDS suture in a running standard fashion. The subcutaneous tissue was examining and any bleeding was Bovie cauterized. The subcutaneous tissue was reapproximated with 3-0 Vicryl suture. The skin was closed in a subcuticular fashion by the POSTDOCTORAL FELLOW with me present in the labor and delivery suite. I performed the remainder of the procedure with assistance. All sponge, lap, and needle counts were correct. The patient was taken to her room for recovery in a stable condition. Presentation: Positive for Vertex Amniotic Membrane Rupture Type: Artificial Amniotic Fluid Description: Clear Placental Delivery Description: Expressed Placenta Disposition: [facility] Cord Vessel Description: 3 Vessels Cord Entanglement: Around neck x 1, loose Nuchal Cord Compression: Without compression Infant A Gender: Female (1 minute): 8 (5 minute): 9 Delayed Cord Clamping: Yes Complications Complications: none Admit VTE Documentation VTE Present on Admission: No VTE Mechan Device Prophylaxis: SCD's VTE Pharm Prophylaxis Ordered: Yes
--- NOTE | 2023-12-25 13:18 | PCM.POST.ANE ---
Anesthesia: Postop Eval I Current Vital Signs Temperature: 97.4 F Pulse Rate: 72 Blood Pressure: 101/46 (OB RN to give 500ml fluid bolus) Respiratory Rate: 16 Pulse Ox: 98 Oxygen Delivery Method: Room Air Assessment Airway patent: Yes Spontaneous unlabored respirations: Yes Mental status: Awake and Calm nausea: Yes Vomiting: No Anesthesia Complication: No Fluid Hydration Crystalloid volume administer (ml): 500 Total IV fluid infused: 500 Progress Note Anesthesia document: Postop Eval 1 completed: Yes
[2023-12-25] MEDS: Oxytocin 15 Units/NS 250ml 15 UNITS/250 ML IV.SOLN 83 UNITS IV (13:50)
[2023-12-25] MEDS: Ketorolac 30 MG/ML Syringe IV ×2 (14:38→20:13)
[2023-12-25] MEDS: proCHLORPERazine 10 MG/2 ML Vial IV (15:13)
--- NOTE | 2023-12-25 15:30 | NURSING ---
Received report from Carlos Garcia RN. I will assume care at this time.
[2023-12-25] MEDS: Lactated Ringers 1,000 ML 100 ML IV (17:09)
[2023-12-25] MEDS: Ondansetron 4 MG/2 ML Vial IV (17:09)
[2023-12-25] MEDS: LACTATED RINGERS 500 ML 999 ML IV (18:50)
[2023-12-25] MEDS: 0.9% Saline Lock 10 ML Syringe IV (20:13)
[2023-12-26 00:39] VITALS: BP 122/90; PULSE 64; RESP 17; TEMP 36.6; O2SAT 98
[2023-12-26] MEDS: Enoxaparin 40 MG/0.4 ML Syringe SC (00:43)
[2023-12-26] MEDS: Ketorolac 30 MG/ML Syringe IV ×2 (02:25→08:03)
[2023-12-26] MEDS: 0.9% Saline Lock 10 ML Syringe IV ×3 (02:25→08:04)
[2023-12-26 03:40] VITALS: BP 120/76; PULSE 57; RESP 16; TEMP 36.6; O2SAT 96
[2023-12-26 05:27] LABS: Hematocrit 30.2 % (37-47); Hemoglobin 10.3 g/dL (12.0-15.0); Mean Corp Hgb Conc 34.1 g/dL (32-36); Mean Corpuscular Hgb 31.3 pg (27.0-32.0); Mean Corpuscular Volume 91.8 fL (81-99); Mean Platelet Vol. 10.2 fl (6.2-12.0); Platelet Count 180 K/mm3 (150-450); RBC Distribution Width CV 13.6 % (11.6-14.6); RBC Distribution Width SD 44.9 fl (35.1-43.9); Red Blood Count 3.29 M/mm3 (4.2-5.4); White Blood Count 9.9 K/mm3 (4.4-11.0)
[2023-12-26] MEDS: Acetaminophen 500 MG Tablet 1000 MG PO ×4 (05:37→23:26)
[2023-12-26 07:54] VITALS: BP 103/64; PULSE 58; RESP 17; TEMP 36.4; O2SAT 98
--- NOTE | 2023-12-26 08:54 | PCM.PN.OB ---
Objective Data Objective Data Vital Signs: Vital Signs Temp Pulse Resp BP Pulse Ox O2 Del Method 97.6 F L 58 L 17 103/64 98 Room Air 12/26/23 07:54 12/26/23 07:54 12/26/23 07:54 12/26/23 07:54 12/26/23 07:54 12/26/23 07:54 Oxygen Delivery Method Room Air Weight: 91.195 kg Body Mass Index (BMI) 33.4 Intake & Output: Intake and Output for Last 24 Hours 12/24/23 12/25/23 12/26/23 23:59 23:59 23:59 Intake Total 3328.33 / 3328.33 831.67 / 831.67 Output Total 1800 / 1800 375 / 375 Balance 1528.33 / 1528.33 456.67 / 456.67 Lab / Micro Data 12/26/23 05:15 Labs: Laboratory Results - last 24 hr 12/25/23 10:10: WBC 7.2, RBC 4.09 L, Hgb 12.5, Hct 36.9 L, MCV 90.2, MCH 30.6, MCHC 33.9, RDW Std Deviation 43.6, RDW Coeff of Bubba 13.2, Plt Count 219, MPV 10.1, Immature Gran % (Auto) 1.000 H, Neut % (Auto) 67.5, Lymph % (Auto) 22.9, [place] % (Auto) 5.5, Eos % (Auto) 2.8, Baso % (Auto) 0.3, Absolute Neuts (auto) 4.8, Absolute Lymphs (auto) 1.64, Nucleated RBC % 0, Syphilis Total Ab Non-reactive, Blood Type A POSITIVE, Antibody Screen NEGATIVE 12/26/23 05:15: WBC 9.9, RBC 3.29 L, Hgb 10.3 L, Hct 30.2 L, MCV 91.8, MCH 31.3, MCHC 34.1, RDW Std Deviation 44.9 H, RDW Coeff of Bubba 13.6, Plt Count 180, MPV 10.2
[2023-12-26] MEDS: Senna/Docusate Sodium 1 Tablet PO (09:24)
[2023-12-26 12:10] VITALS: BP 111/63; PULSE 64; RESP 16; TEMP 36.8; O2SAT 98
[2023-12-26] MEDS: Ibuprofen 600 MG Tablet PO ×2 (14:25→21:28)
[2023-12-26 16:22] VITALS: BP 131/84; PULSE 64; RESP 18; TEMP 37.1; O2SAT 98
[2023-12-26 20:04] VITALS: BP 124/75; PULSE 71; RESP 15; TEMP 36.9; O2SAT 96
--- NOTE | 2023-12-26 20:19 | PCM.PN.OB ---
Subjective Subjective Doing well. Ambulating and voiding without difficulty. Pain controlled. Breast feeding. Objective Data Objective Data Vital Signs: Vital Signs Temp Pulse Resp BP Pulse Ox O2 Del Method 98.4 F 71 15 124/75 H 96 Room Air 12/26/23 20:04 12/26/23 20:04 12/26/23 20:04 12/26/23 20:04 12/26/23 20:04 12/26/23 20:08 Oxygen Delivery Method Room Air Weight: 91.195 kg Body Mass Index (BMI) 33.4 Intake & Output: Intake and Output for Last 24 Hours 12/24/23 12/25/23 12/26/23 23:59 23:59 23:59 Intake Total 3328.33 / 3328.33 831.67 / 831.67 Output Total 1800 / 1800 1275 / 1275 Balance 1528.33 / 1528.33 -443.33 / -443.33 Lab / Micro Data 12/26/23 05:15 Labs: Laboratory Results - last 24 hr 12/26/23 05:15: WBC 9.9, RBC 3.29 L, Hgb 10.3 L, Hct 30.2 L, MCV 91.8, MCH 31.3, MCHC 34.1, RDW Std Deviation 44.9 H, RDW Coeff of Bubba 13.6, Plt Count 180, MPV 10.2 ROS Constitutional Constitutional: Denies fatigue, fever(s) or malaise Eyes Eyes: Denies change in vision ENT HEENT: Denies dizziness or headache(s) Cardiovascular Cardiovascular: Denies chest pain, dyspnea or lightheadedness Respiratory/Chest Respiratory/Chest: Denies cough or dyspnea Neurologic Neurologic: Denies confusion, dizziness, headache(s), numbness or weakness Physical Exam Const alert General Appearance: cooperative GI GI Narrative: soft, moderate distention, fundus firm, appropriately tender. Abdominal bandage clean dry and intact Assessment & Plan (1) 39 weeks gestation of : (2) S/P : PLAN: Plan Expect discharge tomorrow
[2023-12-27] MEDS: Enoxaparin 40 MG/0.4 ML Syringe SC (00:36)
[2023-12-27 02:12] VITALS: BP 127/88; PULSE 65; RESP 16; TEMP 36.9; O2SAT 96
[2023-12-27] MEDS: Ibuprofen 600 MG Tablet PO ×2 (03:13→09:44)
[2023-12-27] MEDS: Acetaminophen 500 MG Tablet 1000 MG PO (05:35)
--- NOTE | 2023-12-27 06:55 | PCM.PN.OB ---
Subjective Subjective Feels good. Pain controlled. Ambulating and voiding without difficulty. Breast feeding Objective Data Objective Data Vital Signs: Vital Signs Temp Pulse Resp BP Pulse Ox O2 Del Method 98.5 F 65 16 127/88 H 96 Room Air 12/27/23 02:12 12/27/23 02:12 12/27/23 02:12 12/27/23 02:12 12/27/23 02:12 12/27/23 02:12 Oxygen Delivery Method Room Air Weight: 91.195 kg Body Mass Index (BMI) 33.4 Intake & Output: Intake and Output for Last 24 Hours 12/25/23 12/26/23 12/27/23 23:59 23:59 23:59 Intake Total 3328.33 / 3328.33 831.67 / 831.67 Output Total 1800 / 1800 1275 / 1275 Balance 1528.33 / 1528.33 -443.33 / -443.33 Lab / Micro Data 12/26/23 05:15 ROS Constitutional Constitutional: Denies fatigue, fever(s) or malaise Eyes Eyes: Denies change in vision ENT HEENT: Denies dizziness or headache(s) Cardiovascular Cardiovascular: Denies chest pain, dyspnea or lightheadedness Respiratory/Chest Respiratory/Chest: Denies cough or dyspnea Neurologic Neurologic: Denies confusion, dizziness, headache(s), numbness or weakness Physical Exam Const alert General Appearance: cooperative GI GI Narrative: soft, moderate distention, fundus firm, appropriately tender. Abdominal bandage clean dry and intact Assessment & Plan (1) S/P : PLAN: Plan Discharge home
--- NOTE | 2023-12-27 06:58 | PCM.DC.SUM ---
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 No problems. Breast feeding on discharge Physical Exam Const alert General Appearance: cooperative GI GI Narrative: soft, moderate distention, fundus firm, appropriately tender. Abdominal bandage clean dry and intact Weight / BMI Weight Weight: 91.195 kg Body Mass Index (BMI) 33.4 ABG / Lab / Microbiology Data 12/26/23 05:15 D/C Instructions Discharge Diet: No restrictions May resume sexual activity in: 4-6 weeks Lifting Restrictions: 20 pounds Additional Activity Instructions: Nothing in the vagina for 4-6 weeks. You may return to work/school in 6 weeks. Call your doctor if your incision/area has: Continuous Slow Oozing, Sudden Increased Bleeding, Increased Pain/ Swelling, Increased Redness and Foul Smelling Discharge Call your doctor if you observe: Fever of 101 or Higher and Using more than 1 pad per hour (for 2 hours) Suture Line Care: Avoid Pulling/Pushing and Avoid Pinching/Bending Cleanse incision/area with: Keep Dressing Clean & Dry Please Follow Up With: Candice Weems MD When: Call to make an appointment for an incision check in 1-2 [id number]. You will need a post check in 6 weeks. Meaningful Use Info Meaningful Use Meaningful Use Diagnoses (Choose all that apply): None applicable Ischemic Stroke Statin Dosing Therapy Reference: STATIN DOSE THERAPY REFERENCE: * Patients > 75 years receive moderate or high dose statin therapy. * Patients 75 years or YOUNGER should receive HIGH intensity statin dose unless contraindicated. You will be required to document reason for non-treatment if statin daily dose does not meet guidelines. HIGH DOSE STATIN THERAPY DAILY Atorvastatin > than or = to 40 mg Rosuvastatin > than or = to 20 mg Amlodipine + Atorvastatin > than or = to 2.5/40 mg Ezetimibe + Simvastatin 10/80 mg Simvastatin 80mg Discharge Plan Admission Admit Date/Time: 12/25/23 09:43 Primary Reason for Your Visit: repeat Attending Provider: Candice Weems Discharge Orders/Prescriptions Prescriptions: Continued [id number] 1 mg Tablet 1 tab PO DAILY omeprazole magnesium [Prilosec OTC] 20 mg tablet,delayed release (DR/EC) 20 mg PO DAILY Discontinued aspirin 81 mg Tablet 81 mg PO DAILY Disposition Disposition (needs filled in before D/C Order can be placed): Home, Self Care
[2023-12-27 08:22] VITALS: BP 119/74; PULSE 63; RESP 16; TEMP 36.3; O2SAT 99
[2023-12-27] MEDS: Senna/Docusate Sodium 1 Tablet PO (09:44)
--- NOTE | 2024-01-01 14:31 | NURSING ---
Follow up phone call not done, intervention not filled out, unknown if patient consented to phone call
== END 2023-12-27 11:25 | disposition home or self-care (01) | DRG 788 ==
PROVIDERS: Admitting Provider Obstetrics & Gynecology; Visit Provider Obstetrics & Gynecology
PROC: 10D00Z1 Extraction of Products of Conception, Low, Open Approach (ICD-10-PCS; CPT 59514; principal; 2023-12-25 11:45)
DX: O34.211 Maternal care for low transverse scar from previous cesarean delivery (principal); O36.63X0 Maternal care for excessive fetal growth, third trimester, not applicable or unspecified; O69.81X0 Labor and delivery complicated by cord around neck, without compression, not applicable or unspecified; Z37.0 Single live birth; Z3A.40 40 weeks gestation of pregnancy; Z79.82 Long term (current) use of aspirin; Z79.899 Other long term (current) drug therapy
CPT/HCPCS: 59050; 85025; 85027; 86780; 86850; 86900; 86901; 99221; J7120; A4216; G0378; J2405